=== PATIENT | male | born 1960 | race Caucasian/White ===

== ENCOUNTER 2016-07-29 11:00 | Observation (INO) | payer MEDICAID ==
[2016-07-29] MEDS ORDERED: VANCOMYCIN HCL/NORMAL SALINE 250 ML IV ONE (11:13)
--- NOTE | 2016-07-29 11:13 | EDPHY ---
H & P HPI/ROS: Chief complaint: Right arm infection History of present illness: This is a 55-year-old male brought to the emergency department by EMS for a possible right arm infection. Patient states he woke this morning and his arm was red. He noted red streaking up the arm. He called EMS. He does state the area is painful. He denies precipitating factors. He denies alleviating factors. He denies other associated signs or symptoms including no history of fever, no trauma. Review of systems: A 10 point review of systems was obtained and other than described above was negative - Medical/Surgical History Hx Asthma: No Hx Chronic Respiratory Disease: No Hx Diabetes: Yes Hx Cardiac Disease: No Hx Renal Disease: No Hx Cirrhosis: No Hx Alcoholism: No Hx HIV/AIDS: No Hx Splenectomy or Spleen Trauma: No Other PMH: CHRONIC PAIN, ANXIETY - Social History Smoking Status: Current every day smoker Additional Social History: Homeless - Physical Exam Exam: General Appearance: Alert, nontoxic. Eyes: Pupils equal and round no injection. Respiratory: Chest is non tender, lungs are clear to auscultation. Cardiac: regular rate and rhythm Gastrointestinal: Abdomen is soft and non tender, no masses, bowel sounds normal. Musculoskeletal: Neck is supple and non tender. Extremities have full range of motion and are non tender. Skin: There is an area of erythema to the right forearm. Is warm and tender to palpation. No induration or fluctuance on palpation to suggest abscess. Lymphangitis to the level of the axilla. Allergies/Adverse Reactions: Sulfa (Sulfonamide Antibiotics) Allergy (Verified 07/29/16 11:12) Home Medications: Medication Instructions Recorded Oxycodone Cr 08/12/15 Valium 08/12/15 oxyCODONE/APAP 5/325 [Percocet 1 tab PO Q6 #10 tab 08/12/15 5/325] Medical Decision Making ED Course/Re-evaluation: Patient discussed with my secondary supervising physician Dr. Yaw Ayers. Patient presents to the emergency department for evaluation of a right arm infection. He appears to have had cellulitis without evidence of abscess formation at this time, there is an associated lymphangitis. Baseline blood studies and blood cultures will be obtained. Patient will be started on vancomycin. He is admitted for further evaluation and care. The plan has been discussed with the patient voiced understanding and agreement with it. Differential Diagnosis: Included but not limited to cellulitis, abscess, lymphangitis, unlikely necrotizing fasciitis Departure - Departure Disposition: [facility] Inpatient Acute Clinical Impression: Lymphangitis Cellulitis Qualifiers: Site of cellulitis: extremity Site of cellulitis of extremity: upper extremity Laterality: right Qualifier Code: (L03.113) Cellulitis of right upper limb Condition: Good
[2016-07-29 11:32] LABS: % IMMATURE GRANULYOCYTES 0.2 % (0.0-1.1); ABSOLUTE IMMATURE GRANULOCYTES 0.02 10^3/uL (0.00-0.10); ADD DIFF? NO; ADD MORPH? NO; ADD SCAN? NO; ATYPICAL LYMPHOCYTE FLAG 20 (0-99); FRAGMENT RBC FLAG 0 (0-99); HEMATOCRIT 44.5 % (40.0-51.0); HEMOGLOBIN 15.4 g/dL (13.7-17.5); LEFT SHIFT FLG 0 (0-99); LIPEMIA HEMOLYSIS FLAG 90 (0-99); MEAN CELL HEMOGLOBIN 29.1 pg (27.9-34.1); MEAN CELL HEMOGLOBIN CONCENTR. 34.6 g/dL (32.4-36.7); MEAN CELL VOLUME 84.1 fL (81.5-99.8); PLATELET CLUMPS FLAG 0 (0-99); PLATELET COUNT 282 10^3/uL (150-400); RED BLOOD CELL COUNT 5.29 10^6/uL (4.40-6.38); RED CELL DISTRIBUTION WIDTH 12.4 % (11.5-15.2)
[2016-07-29 11:57] LABS: ANION GAP 9 mEq/L (8-16); CALCIUM 9.2 mg/dL (8.5-10.4); CARBON DIOXIDE 24 mEq/l (22-31); CHLORIDE 106 mEq/L (97-110); CREATININE 0.9 mg/dL (0.7-1.3); GLOMERULAR FILTRATION RATE > 60; GLUCOSE 84 mg/dL (70-100); POTASSIUM 4.8 mEq/L (3.5-5.2); SODIUM 139 mEq/L (134-144)
[2016-07-29] MEDS: ceFAZolin 2 GM in D5W 100 ML IV SCH ×2 (13:42→22:14)
[2016-07-29] MEDS ORDERED: ceFAZolin 2 GM/DEXTROSE 100 ML IV SCH (14:00)
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
[2016-07-29] MEDS: NICOTINE 21 MG/24 HR PATCH TD SCH (15:00)
[2016-07-29 17:07] VITALS: RESP 16; O2SAT 92
[2016-07-29] MEDS: oxyCODONE IR 5 MG TAB PO PRN ×2 (18:00→23:51)
[2016-07-29] MEDS ORDERED: TEMAZEPAM 15 MG CAP PO ONE (23:17)
[2016-07-29] MEDS ORDERED: DIAZEPAM 5 MG TAB PO ONE (23:30)
[2016-07-30] MEDS: oxyCODONE IR 5 MG TAB PO PRN (06:04)
[2016-07-30] MEDS: ceFAZolin 2 GM in D5W 100 ML IV SCH (06:04)
[2016-07-30 07:41] VITALS: BP 110/67; PULSE 67; TEMP 98.2
[2016-07-30] MEDS: NICOTINE 21 MG/24 HR PATCH TD SCH (07:46)
[2016-07-30] MEDS ORDERED: ASCORBIC ACID 500 MG TAB PO SCH (09:00)
[2016-07-30] MEDS ORDERED: MULTIVITAMINS 1 EACH TAB PO SCH (09:00)
--- NOTE | 2016-07-30 13:07 | GDS ---
[f rep st] DISCHARGE SUMMARY DISCHARGE DIAGNOSES: 1. Right upper extremity cellulitis with lymphangitic streaking. 2. History of chronic hip and back pain, on chronic, continuous daily opioids. 3. History of tobacco abuse. 4. History of bipolar disorder. HOSPITAL COURSE AND STAY BY PROBLEM: Cellulitis: Patient was placed on observation, where he receiv ed 1 dose of vancomycin in the emergency department and then was switched to cefazolin 2 g IV q.8 sharee rs. On hospital day #1, the patient's cellulitis and lymphangitic streaking were markedly improved. He has had no fevers or chills. On day of discharge, he denies any pain in his arm and tells me his arm feels much better. PHYSICAL EXAM ON DAY OF DISCHARGE: VITAL SIGNS: Blood pressure 110/67, pulse 67, respiratory rate 1 6, O2 sat 92% on room air, temperature afebrile. GENERAL: In acute distress. EXTREMITIES: Right f orearm with improved lymphangitic streaking. There is no fluctuance or induration. DIAGNOSTICS DONE THIS HOSPITAL STAY: None. DISCHARGE MEDICATIONS: Please refer to discharge medication reconciliation in [facility] for full deta ils. Below is a preliminary list. Keflex 500 mg p.o. q.6 hours to complete a 7-day course. All other home medications are continued at his usual home dosages. DISCHARGE INSTRUCTIONS: The patient was discharged from the hospital, where [facility] he develops any recurrence of his arm pain, redness, or swelling. He plans to foll ow up at the [facility] later on this week. He was advised to quit smoking. He should also fol low up with his psychiatrist for further outpatient followup of his bipolar disorder. Copy requested to: [facility] /[id number]/MODL
== END 2016-07-30 11:38 | disposition home or self-care (01) ==
LOC: EDUNIT# → F1N 11:38
PROVIDERS: ADMIT Family Medicine; ATTEND Family Medicine
DX: L03.113 Cellulitis of right upper limb (principal); L03.123 Acute lymphangitis of right upper limb; G89.29 Other chronic pain; F17.200 Nicotine dependence, unspecified, uncomplicated; Z79.891 Long term (current) use of opiate analgesic; Z88.2 Allergy status to sulfonamides
CPT/HCPCS: 96365; 99285; G0378; J0690; J3370